=== PATIENT | male | born 1990 ===

== ENCOUNTER 2019-01-11 23:47 | Emergency (ER) | payer SELFPAY ==
--- NOTE | 2019-01-12 | RAD ---
CHEST ONE VIEW: Indication: Chest pain Comparison: None. FINDINGS: The lungs are clear. Heart size is normal. No acute osseous abnormality is evident. IMPRESSION: No acute cardiopulmonary abnormality. POS: [facility]
== END 2019-01-12 00:28 | disposition home or self-care (01) ==
LOC: ERS 23:47
DX: R07.89 Other chest pain (principal); Z71.6 Tobacco abuse counseling
CPT/HCPCS: 71045; 93005; 99406